=== PATIENT | female | born 1955 | race Two or more races ===

== ENCOUNTER 2023-11-09 06:05 | Inpatient (IN) | payer OTHER ==
[2023-11-08 09:55] LABS: PH,URINE 5.5 (5.0-8.0); URINE APPEARANCE Clear; URINE BILIRRUBIN Negative (NEGATIVE); URINE BLOOD Small; URINE COLOR Yellow; URINE GLUCOSE Negative (NEGATIVE); URINE LEUKOCYTE Small; URINE NITRATE Negative; URINE PROTEIN Negative (NEGATIVE); URINE UROBILINOGEN 0.2 E.U./dl
[2023-11-08 09:56] LABS: URINE BACTERIA 8.8 uL (0.0-1933); URINE EPITHELIAL CELLS 6.6 uL (0.0-38.8); URINE RBC 19.8 uL (0.0-20.8); URINE WBC 21.1 uL (0.0-23.2)
[2023-11-08 10:05] LABS: HEMATOCRIT 31.5 % (36.0-45.00); HEMOGLOBIN 10.9 g/dL (12.0-15.00); MEAN CELL VOLUME 92.3 fL (80.00-100.00); MEAN CORPUSCULAR HEMOGLOBIN 31.8 pg (27.00-32.0); MEAN CORPUSCULAR HGB CONC 34.5 g/dl (32.0-36.0); PLATELET COUNT 251 K/uL (150-450); RED BLOOD COUNT 3.41 M/uL (4.00-6.00); RED CELL DISTRIBUTION WIDTH 14.8 % (11.5-14.5)
[2023-11-08 10:21] LABS: INR 1.05; PARTIAL THROMBOPLASTIN TIME 28.5 SECONDS (22.0-34.0)
[2023-11-08 10:37] LABS: ALBUMIN 3.6 gm/dL (3.4-5.0); BILIRUBIN TOTAL 0.45 mg/dL (0.3-1.2); CALCIUM 9.7 mg/dL (8.5-10.1); CREATININE SERUM 0.57 mg/dL (0.55-1.02); GFR 106.12; GLOBULINA 3.5 G/DL (2.4-3.5); POTASSIUM 3.71 mEq/L (3.5-5.1); TOTAL PROTEIN 7.1 gm/dL (6.4-8.2)
[~2023-11-09] VITALS: Ht 154.9 cm; Wt 60.8 kg
[~2023-11-09 06:05] MED LIST: COZAAR100 MG PO; TYLENOL325 MG PO
== END 2023-11-10 11:59 | disposition home or self-care (01) | DRG 581 ==
LOC: CIR.AMB 06:05 → O/R 12:22 → SURG 13:31 → CIR.AMB 15:00 → SURG 11-10 11:59
PROVIDERS: ADMIT Surgery; ATTEND Surgery
PROC: 0HTU0ZZ Resection of Left Breast, Open Approach (ICD-10-PCS; 2023-11-09)
PROC: 07B60ZZ Excision of Left Axillary Lymphatic, Open Approach (ICD-10-PCS; principal; 2023-11-09 09:30)
DX: C50.812 Malignant neoplasm of overlapping sites of left female breast (principal); Z20.822 Contact with and (suspected) exposure to COVID-19